=== PATIENT | male | born 1960 | race Caucasian/White ===

== ENCOUNTER 2021-10-29 18:30 | Inpatient (IN) | payer MEDICARE, MEDICAID ==
[~2021-10-29] VITALS: Ht 162.6 cm; Wt 68.0 kg
[2021-10-30] MEDS ORDERED: VANCOMYCIN 1G PREMIX 200 ML IV STA (01:14)
[2021-10-30] MEDS ORDERED: PIPERACILLIN/TAZOBACTAM 3.375GM/50ML PREMIX IV STA (01:14)
[2021-10-30] MEDS ORDERED: PIPERACILLIN/TAZ 3.375G PREMIX 50 ML IV NR (01:30)
[2021-10-30 01:34] LABS: EOSINOPHILS % 3.1 % (0.0-5.0); HEMATOCRIT. 37.1 % (42.0-52.0); LYMPHOCYTES % 19.1 % (20.0-50.0); MEAN CORPUSCULAR HEMOGLOBIN 27.4 pg (28.0-32.0); MEAN CORPUSCULAR VOLUME 85.1 fL (80.0-94.0); MEAN PLATELET VOLUME 7.4 fl (7.4-10.4); MONOCYTES % 7.5 % (2.0-8.0); NEUTROPHILS % 69.3 % (40.0-76.0); PLATELET 176 x1000/uL (130-400); RED BLOOD CELL COUNT 4.37 mill/uL (4.7-6.1); RED CELL DISTRIBUTION WIDTH 18.7 % (11.6-14.6)
[2021-10-30 01:41] LABS: CHLORIDE 95 mEq/L (98-107)
[2021-10-30 01:46] LABS: INR 1.2; PROTHROMBIN TIME 13.1 sec (9.6-11.0)
[2021-10-30] MEDS ORDERED: VANCOMYCIN 1G PREMIX 200 ML IV NR (02:15)
[2021-10-30] MEDS ORDERED: SODIUM CHLORIDE 0.9% 1,000 ML IV ONE (08:30)
[2021-10-30 10:30] VITALS: BP 128/65
[2021-10-30 12:00] VITALS: BP 145/77
[2021-10-30] MEDS ORDERED: CLONIDINE 0.1MG TABLET PO PRN (14:15)
[2021-10-30] MEDS ORDERED: DIPHENHYDRAMINE 50MG/ML VIAL IV PRN (14:15)
[2021-10-30] MEDS ORDERED: ACETAMINOPHEN 325MG TABLET PO PRN (14:15)
[2021-10-30] MEDS ORDERED: MAGNESIUM/ALUMINUM HYDROXIDE/SIMETHICONE 30ML UDC PO PRN (14:15)
[2021-10-30] MEDS ORDERED: ONDANSETRON HCL 4MG/2ML INJ IV PRN (14:15)
[2021-10-30] MEDS: NITROGLYCERIN OINT 1GM/INCH UDPKT TD SCH ×2 (14:22→18:01)
[2021-10-30 14:57] LABS: HEPATITIS B SURFACE ANTIGEN NEGATIVE
[2021-10-30 16:00] VITALS: BP_SYST 125; BP_SYST 143; BP_DIAS 80; BP_DIAS 85
[2021-10-30] MEDS ORDERED: ENOXAPARIN 30MG/0.3ML SYR SUBCUT NR (16:00)
[2021-10-30] MEDS: DEXTROSE 50% WATER 50ML SYRINGE IV PRN (17:44)
[2021-10-30] MEDS: INSULIN LISPRO 100 UNITS/ML SUBCUT SCH ×2 (17:50→21:00)
[2021-10-30] MEDS: BLOOD SUGAR DIAGNOSTIC STRIP TEST SCH ×2 (18:01→21:00)
[2021-10-30] MEDS: ROPINIROLE HCL 1MG TABLET PO SCH (18:01)
[2021-10-30] MEDS: CALCIUM ACETATE 667MG CAPSULE PO SCH (18:16)
[2021-10-30] MEDS: OMEPRAZOLE 20MG CAPSULE EXTENDED RELEASE PO SCH (18:16)
[2021-10-30 20:00] VITALS: BP 126/71
[2021-10-30] MEDS ORDERED: ZOLPIDEM TARTRATE 5MG TABLET PO PRN (21:00)
[2021-10-30] MEDS: CARVEDILOL 3.125 MG TABLET PO SCH (21:59)
[2021-10-30] MEDS: ATORVASTATIN CALCIUM 40MG TABLET PO SCH (22:00)
[2021-10-30] MEDS: GABAPENTIN 300MG CAPSULE PO SCH (22:00)
[2021-10-31] VITALS: BP 134/77
[2021-10-31 04:00] VITALS: BP 115/64
[2021-10-31] MEDS: DEXTROSE 5% WATER 1,000 ML IV SCH ×2 (07:04→17:42)
[2021-10-31] MEDS: SODIUM CHLORIDE 0.9% INJ 3ML FLUSH IVF SCH ×4 (07:05→22:00)
[2021-10-31] MEDS: BLOOD SUGAR DIAGNOSTIC STRIP TEST SCH ×4 (07:10→21:00)
[2021-10-31] MEDS: OMEPRAZOLE 20MG CAPSULE EXTENDED RELEASE PO SCH (07:10)
[2021-10-31] MEDS: NITROGLYCERIN OINT 1GM/INCH UDPKT TD SCH ×4 (07:10→17:41)
[2021-10-31] MEDS: INSULIN LISPRO 100 UNITS/ML SUBCUT SCH ×4 (07:50→21:00)
[2021-10-31 08:00] VITALS: BP 150/85
[2021-10-31] MEDS: CALCIUM ACETATE 667MG CAPSULE PO SCH ×3 (09:08→17:41)
[2021-10-31] MEDS: CARVEDILOL 3.125 MG TABLET PO SCH ×2 (09:09→21:50)
[2021-10-31] MEDS: FOLIC ACID/VITAMIN B COMP W-C TABLET PO SCH (09:09)
[2021-10-31] MEDS: FERROUS SULFATE 325MG TABLET PO SCH (09:09)
[2021-10-31] MEDS: ROPINIROLE HCL 1MG TABLET PO SCH ×2 (09:10→17:41)
[2021-10-31] MEDS: LISINOPRIL 5MG TABLET PO SCH (09:10)
[2021-10-31 09:34] LABS: EOSINOPHILS % 4.4 % (0.0-5.0); HEMATOCRIT. 31.8 % (42.0-52.0); HEMOGLOBIN. 10.1 g/dL (14.0-18.0); LYMPHOCYTES % 18.8 % (20.0-50.0); MEAN CORPUSCULAR HEMOGLOBIN 27.4 pg (28.0-32.0); MEAN CORPUSCULAR VOLUME 86.2 fL (80.0-94.0); MEAN PLATELET VOLUME 7.9 fl (7.4-10.4); MONOCYTES % 13.4 % (2.0-8.0); NEUTROPHILS % 62.4 % (40.0-76.0); PLATELET 155 x1000/uL (130-400); RED BLOOD CELL COUNT 3.69 mill/uL (4.7-6.1); RED CELL DISTRIBUTION WIDTH 18.7 % (11.6-14.6)
[2021-10-31 12:00] VITALS: BP 143/74
[2021-10-31] MEDS ORDERED: MIDAZOLAM HCL 2 MG/2 ML VIAL ONE (13:24)
[2021-10-31] MEDS ORDERED: IODIXANOL 320MG/ML 100 ML BOTTLE IV ONE (13:24)
[2021-10-31] MEDS ORDERED: FENTANYL CITRATE/PF 50MCG/ML 2ML VIAL ONE (13:24)
[2021-10-31] MEDS ORDERED: LIDOCAINE HCL 1% 10 MG/ML 10ML VIAL ONE (13:27)
[2021-10-31] MEDS ORDERED: FUROSEMIDE 20MG/2ML VIAL ONE (14:58)
[2021-10-31] MEDS ORDERED: CEFTRIAXONE 2 G PREMIX 50 ML IV SCH (15:15)
[2021-10-31 16:00] VITALS: BP 107/65
[2021-10-31] MEDS: ACETAMINOPHEN 325MG TABLET PO PRN ×2 (17:41→21:49)
[2021-10-31] MEDS: CEFTRIAXONE 2 G in DEXTROSE 5% WATER 50 ML IV SCH (17:57)
[2021-10-31] MEDS: METRONIDAZOLE 250MG TABLET PO SCH (17:57)
[2021-10-31 20:00] VITALS: BP 124/73
[2021-10-31] MEDS: GABAPENTIN 300MG CAPSULE PO SCH (21:48)
[2021-11-01] VITALS: BP 136/71
[2021-11-01] MEDS: ATORVASTATIN CALCIUM 40MG TABLET PO SCH ×2 (00:54→23:45)
[2021-11-01] MEDS: METRONIDAZOLE 250MG TABLET PO SCH ×4 (00:55→23:45)
[2021-11-01] MEDS: NITROGLYCERIN OINT 1GM/INCH UDPKT TD SCH ×4 (00:56→18:00)
[2021-11-01 04:00] VITALS: BP 125/66
[2021-11-01] MEDS: SODIUM CHLORIDE 0.9% INJ 3ML FLUSH IVF SCH ×3 (06:51→23:47)
[2021-11-01] MEDS: BLOOD SUGAR DIAGNOSTIC STRIP TEST SCH ×4 (07:02→21:00)
[2021-11-01] MEDS: INSULIN LISPRO 100 UNITS/ML SUBCUT SCH ×4 (07:05→21:00)
[2021-11-01 07:32] LABS: BASOPHILS % 0.9 % (0.0-2.0); EOSINOPHILS % 5.6 % (0.0-5.0); HEMATOCRIT. 31.7 % (42.0-52.0); HEMOGLOBIN. 10.3 g/dL (14.0-18.0); LYMPHOCYTES % 21.7 % (20.0-50.0); MEAN CORPUSCULAR HEMOGLOBIN 27.5 pg (28.0-32.0); MEAN CORPUSCULAR VOLUME 84.3 fL (80.0-94.0); MEAN PLATELET VOLUME 7.5 fl (7.4-10.4); MONOCYTES % 11.8 % (2.0-8.0); PLATELET 165 x1000/uL (130-400); RED BLOOD CELL COUNT 3.76 mill/uL (4.7-6.1); RED CELL DISTRIBUTION WIDTH 18.3 % (11.6-14.6)
[2021-11-01] MEDS: DEXTROSE 50% WATER 50ML SYRINGE IV PRN ×2 (07:58→08:04)
[2021-11-01 08:00] VITALS: BP 116/61
[2021-11-01] MEDS ORDERED: BUPIVACAINE HCL/PF 0.5% (5MG/ML) 10ML ONE (08:00)
[2021-11-01] MEDS ORDERED: BACITRACIN 15GM TUBE TOP ONE (08:00)
[2021-11-01] MEDS ORDERED: POLYMYXIN B SULFATE 500000 UNITS/VIAL ONE ×2 (08:00→10:38)
[2021-11-01] MEDS ORDERED: DEXAMETHASONE 4MG/ML 1ML VIAL ONE (08:00)
[2021-11-01] MEDS ORDERED: LIDOCAINE HCL 1% 20ML VIAL (Pyxis) INJ ONE (08:02)
[2021-11-01] MEDS: FOLIC ACID/VITAMIN B COMP W-C TABLET PO SCH (08:50)
[2021-11-01] MEDS: ROPINIROLE HCL 1MG TABLET PO SCH ×2 (08:50→18:00)
[2021-11-01] MEDS: CARVEDILOL 3.125 MG TABLET PO SCH ×2 (08:53→23:45)
[2021-11-01] MEDS: LISINOPRIL 5MG TABLET PO SCH (08:54)
[2021-11-01] MEDS: FERROUS SULFATE 325MG TABLET PO SCH (08:55)
[2021-11-01] MEDS: FAMOTIDINE 20MG TABLET PO SCH (08:55)
[2021-11-01] MEDS: CALCIUM ACETATE 667MG CAPSULE PO SCH ×3 (08:55→18:00)
[2021-11-01] MEDS ORDERED: FENTANYL CITRATE/PF 50MCG/ML 2ML VIAL ONE (10:22)
[2021-11-01] MEDS ORDERED: ONDANSETRON HCL 4MG/2ML INJ ONE (10:22)
[2021-11-01] MEDS ORDERED: LIDOCAINE HCL 1% 10 MG/ML 10ML VIAL ONE (10:22)
[2021-11-01] MEDS ORDERED: MIDAZOLAM HCL 2 MG/2 ML VIAL ONE (10:23)
[2021-11-01] MEDS ORDERED: PROPOFOL 200MG/20ML VIAL IV ONE (10:23)
[2021-11-01] MEDS ORDERED: GENTAMICIN SULF 40MG/ML 2ML VIAL ONE (10:38)
[2021-11-01] MEDS ORDERED: LABETALOL 5MG/ML SYR 20 MG/4 ML SYRINGE IV PRN (11:00)
[2021-11-01] MEDS ORDERED: MEPERIDINE HCL/PF 25MG/ML CPJ IV PRN (11:00)
[2021-11-01] MEDS ORDERED: ONDANSETRON HCL 4MG/2ML INJ IV PRN (11:00)
[2021-11-01] MEDS ORDERED: HYDROMORPHONE HCL/PF 2MG/ML CPJ IV PRN (11:00)
[2021-11-01] MEDS ORDERED: NALOXONE HCL 0.4MG/ML VIAL IV PRN (11:15)
[2021-11-01 16:00] VITALS: BP 115/64
[2021-11-01] MEDS ORDERED: POTASSIUM CHLORIDE 20MEQ TABLET SR PO NR (16:00)
[2021-11-01] MEDS: CEFTRIAXONE 2 G in DEXTROSE 5% WATER 50 ML IV SCH (17:00)
[2021-11-01] MEDS: GABAPENTIN 300MG CAPSULE PO SCH (23:46)
[2021-11-02] VITALS: BP 117/61
[2021-11-02 04:00] VITALS: BP 115/60
[2021-11-02] MEDS: SODIUM CHLORIDE 0.9% INJ 3ML FLUSH IVF SCH ×3 (06:00→21:23)
[2021-11-02] MEDS: NITROGLYCERIN OINT 1GM/INCH UDPKT TD SCH ×3 (06:57→18:00)
[2021-11-02] MEDS: METRONIDAZOLE 250MG TABLET PO SCH ×3 (06:58→21:22)
[2021-11-02] MEDS: BLOOD SUGAR DIAGNOSTIC STRIP TEST SCH ×4 (06:58→21:00)
[2021-11-02] MEDS: INSULIN LISPRO 100 UNITS/ML SUBCUT SCH ×4 (07:50→21:00)
[2021-11-02 08:00] VITALS: BP 85/57
[2021-11-02] MEDS: FAMOTIDINE 20MG TABLET PO SCH (08:24)
[2021-11-02] MEDS: ROPINIROLE HCL 1MG TABLET PO SCH ×2 (08:24→18:21)
[2021-11-02] MEDS: FOLIC ACID/VITAMIN B COMP W-C TABLET PO SCH (08:24)
[2021-11-02] MEDS: CALCIUM ACETATE 667MG CAPSULE PO SCH ×3 (08:24→18:19)
[2021-11-02] MEDS: FERROUS SULFATE 325MG TABLET PO SCH (08:24)
[2021-11-02] MEDS: CARVEDILOL 3.125 MG TABLET PO SCH ×2 (08:38→21:23)
[2021-11-02] MEDS: LISINOPRIL 5MG TABLET PO SCH (08:41)
[2021-11-02 12:00] VITALS: BP 110/49
[2021-11-02] MEDS ORDERED: POTASSIUM CHLORIDE 20MEQ TABLET SR PO NR (14:30)
[2021-11-02 16:00] VITALS: BP 96/47
[2021-11-02] MEDS: CEFTRIAXONE 2 G in DEXTROSE 5% WATER 50 ML IV SCH (18:19)
[2021-11-02 20:00] VITALS: BP 136/70
[2021-11-02] MEDS: GABAPENTIN 300MG CAPSULE PO SCH (21:22)
[2021-11-02] MEDS: ATORVASTATIN CALCIUM 40MG TABLET PO SCH (21:23)
[2021-11-03] VITALS: BP 124/52
[2021-11-03 04:00] VITALS: BP 126/58
[2021-11-03] MEDS: NITROGLYCERIN OINT 1GM/INCH UDPKT TD SCH ×2 (05:02)
[2021-11-03] MEDS: SODIUM CHLORIDE 0.9% INJ 3ML FLUSH IVF SCH ×3 (05:03→22:00)
[2021-11-03] MEDS: METRONIDAZOLE 250MG TABLET PO SCH ×2 (05:03→13:41)
[2021-11-03] MEDS: BLOOD SUGAR DIAGNOSTIC STRIP TEST SCH ×4 (06:27→21:00)
[2021-11-03] MEDS: INSULIN LISPRO 100 UNITS/ML SUBCUT SCH ×4 (07:50→21:00)
[2021-11-03 08:00] VITALS: BP 129/67
[2021-11-03] MEDS ORDERED: SODIUM BICARBONATE 4% (2.4MEQ) 5ML VIAL IV ONE (08:18)
[2021-11-03] MEDS ORDERED: LIDOCAINE HCL/PF 1% 10 MG/ML 5ML VIAL ONE (08:18)
[2021-11-03] MEDS: CALCIUM ACETATE 667MG CAPSULE PO SCH ×3 (08:40→19:52)
[2021-11-03] MEDS: ROPINIROLE HCL 1MG TABLET PO SCH ×2 (10:39→19:52)
[2021-11-03] MEDS: FERROUS SULFATE 325MG TABLET PO SCH (10:40)
[2021-11-03] MEDS: LISINOPRIL 5MG TABLET PO SCH (10:40)
[2021-11-03] MEDS: FAMOTIDINE 20MG TABLET PO SCH (10:40)
[2021-11-03] MEDS: FOLIC ACID/VITAMIN B COMP W-C TABLET PO SCH (10:41)
[2021-11-03] MEDS: CARVEDILOL 3.125 MG TABLET PO SCH ×3 (10:41→23:03)
[2021-11-03 11:44] LABS: BASOPHILS % 1.1 % (0.0-2.0); EOSINOPHILS % 5.4 % (0.0-5.0); HEMATOCRIT. 34.9 % (42.0-52.0); HEMOGLOBIN. 11.2 g/dL (14.0-18.0); LYMPHOCYTES % 19.8 % (20.0-50.0); MEAN CORPUSCULAR HEMOGLOBIN 27.5 pg (28.0-32.0); MEAN PLATELET VOLUME 7.5 fl (7.4-10.4); MONOCYTES % 10.1 % (2.0-8.0); NEUTROPHILS % 63.6 % (40.0-76.0); PLATELET 159 x1000/uL (130-400); RED BLOOD CELL COUNT 4.06 mill/uL (4.7-6.1); RED CELL DISTRIBUTION WIDTH 18.8 % (11.6-14.6)
[2021-11-03 12:00] VITALS: BP 112/52
[2021-11-03 16:00] VITALS: BP 124/49
[2021-11-03] MEDS ORDERED: VANCOMYCIN 1500MG in DEXTROSE 5% WATER 250ML IV NR (18:00)
[2021-11-03] MEDS: CEFTRIAXONE 2 G in DEXTROSE 5% WATER 50 ML IV SCH (19:53)
[2021-11-03 20:00] VITALS: BP 117/56
[2021-11-03] MEDS: GABAPENTIN 300MG CAPSULE PO SCH (23:19)
[2021-11-03] MEDS: ATORVASTATIN CALCIUM 40MG TABLET PO SCH (23:20)
[2021-11-04] VITALS: BP 122/56
[2021-11-04] MEDS: METRONIDAZOLE 250MG TABLET PO SCH ×3 (01:09→21:22)
[2021-11-04 04:00] VITALS: BP 124/57
[2021-11-04 07:44] LABS: BASOPHILS % 0.9 % (0.0-2.0); EOSINOPHILS % 4.8 % (0.0-5.0); HEMATOCRIT. 36.8 % (42.0-52.0); HEMOGLOBIN. 11.6 g/dL (14.0-18.0); LYMPHOCYTES % 22.1 % (20.0-50.0); MEAN CORPUSCULAR HEMOGLOBIN 27.5 pg (28.0-32.0); MEAN CORPUSCULAR VOLUME 87.3 fL (80.0-94.0); MEAN PLATELET VOLUME 7.7 fl (7.4-10.4); MONOCYTES % 9.9 % (2.0-8.0); NEUTROPHILS % 62.3 % (40.0-76.0); PLATELET 147 x1000/uL (130-400); RED BLOOD CELL COUNT 4.22 mill/uL (4.7-6.1); RED CELL DISTRIBUTION WIDTH 18.1 % (11.6-14.6)
[2021-11-04] MEDS: CALCIUM ACETATE 667MG CAPSULE PO SCH ×3 (07:50→18:05)
[2021-11-04] MEDS: INSULIN LISPRO 100 UNITS/ML SUBCUT SCH ×4 (07:50→21:00)
[2021-11-04 08:00] VITALS: BP 103/66
[2021-11-04] MEDS: BLOOD SUGAR DIAGNOSTIC STRIP TEST SCH ×4 (08:09→21:00)
[2021-11-04] MEDS: LISINOPRIL 5MG TABLET PO SCH (09:00)
[2021-11-04] MEDS: FOLIC ACID/VITAMIN B COMP W-C TABLET PO SCH (09:00)
[2021-11-04] MEDS: ROPINIROLE HCL 1MG TABLET PO SCH ×2 (09:00→17:37)
[2021-11-04] MEDS: FERROUS SULFATE 325MG TABLET PO SCH (09:00)
[2021-11-04] MEDS: FAMOTIDINE 20MG TABLET PO SCH (09:00)
[2021-11-04 12:00] VITALS: BP 99/45
[2021-11-04] MEDS: SODIUM CHLORIDE 0.9% INJ 3ML FLUSH IVF SCH ×2 (14:37→21:22)
[2021-11-04 16:00] VITALS: BP 141/71
[2021-11-04] MEDS: HYDROCODONE/ACETAMINOPHEN 5/325MG TABLET PO PRN (16:08)
[2021-11-04] MEDS: CEFTRIAXONE 2 G in DEXTROSE 5% WATER 50 ML IV SCH (17:37)
[2021-11-04] MEDS ORDERED: NALOXONE HCL 0.4MG/ML VIAL IV PRN (18:30)
[2021-11-04 20:00] VITALS: BP 103/51
[2021-11-04] MEDS: CARVEDILOL 3.125 MG TABLET PO SCH (21:00)
[2021-11-04] MEDS: ATORVASTATIN CALCIUM 40MG TABLET PO SCH (21:22)
[2021-11-04] MEDS: GABAPENTIN 300MG CAPSULE PO SCH (21:22)
[2021-11-04] MEDS ORDERED: BACITRACIN ZINC OINT UDPKT TOP NR (23:00)
[2021-11-05] VITALS: BP 109/54
[2021-11-05 04:00] VITALS: BP 110/68
[2021-11-05] MEDS: HYDROCODONE/ACETAMINOPHEN 5/325MG TABLET PO PRN ×2 (05:08→09:23)
[2021-11-05] MEDS: METRONIDAZOLE 250MG TABLET PO SCH ×2 (05:08→14:23)
[2021-11-05] MEDS: SODIUM CHLORIDE 0.9% INJ 3ML FLUSH IVF SCH ×3 (05:08→22:00)
[2021-11-05 06:30] LABS: BASOPHILS % 0.9 % (0.0-2.0); HEMATOCRIT. 37.8 % (42.0-52.0); HEMOGLOBIN. 12.1 g/dL (14.0-18.0); LYMPHOCYTES % 25.8 % (20.0-50.0); MEAN CORPUSCULAR HEMOGLOBIN 27.7 pg (28.0-32.0); MEAN CORPUSCULAR VOLUME 86.3 fL (80.0-94.0); MEAN PLATELET VOLUME 7.5 fl (7.4-10.4); MONOCYTES % 9.7 % (2.0-8.0); NEUTROPHILS % 58.6 % (40.0-76.0); PLATELET 159 x1000/uL (130-400); RED BLOOD CELL COUNT 4.38 mill/uL (4.7-6.1); RED CELL DISTRIBUTION WIDTH 18.6 % (11.6-14.6)
[2021-11-05] MEDS: BLOOD SUGAR DIAGNOSTIC STRIP TEST SCH ×4 (07:08→21:25)
[2021-11-05] MEDS: INSULIN LISPRO 100 UNITS/ML SUBCUT SCH ×4 (07:50→21:00)
[2021-11-05 08:00] VITALS: BP 120/63
[2021-11-05] MEDS: FERROUS SULFATE 325MG TABLET PO SCH (09:20)
[2021-11-05] MEDS: FAMOTIDINE 20MG TABLET PO SCH (09:20)
[2021-11-05] MEDS: CARVEDILOL 3.125 MG TABLET PO SCH ×2 (09:20→21:21)
[2021-11-05] MEDS: ROPINIROLE HCL 1MG TABLET PO SCH ×2 (09:21→18:24)
[2021-11-05] MEDS: FOLIC ACID/VITAMIN B COMP W-C TABLET PO SCH (09:21)
[2021-11-05] MEDS: LISINOPRIL 5MG TABLET PO SCH (09:21)
[2021-11-05] MEDS: CALCIUM ACETATE 667MG CAPSULE PO SCH ×3 (09:30→18:24)
[2021-11-05 12:00] VITALS: BP 100/51
[2021-11-05 16:00] VITALS: BP 120/50
[2021-11-05] MEDS: CEFTRIAXONE 2 G in DEXTROSE 5% WATER 50 ML IV SCH (18:24)
[2021-11-05 20:00] VITALS: BP 114/52
[2021-11-05] MEDS: ATORVASTATIN CALCIUM 40MG TABLET PO SCH (21:23)
[2021-11-05] MEDS: GABAPENTIN 300MG CAPSULE PO SCH (21:23)
[2021-11-06] VITALS: BP 120/48
[2021-11-06 04:00] VITALS: BP 127/70
[2021-11-06] MEDS: SODIUM CHLORIDE 0.9% INJ 3ML FLUSH IVF SCH ×3 (06:46→22:17)
[2021-11-06 06:49] LABS: EOSINOPHILS % 4.7 % (0.0-5.0); HEMATOCRIT. 37.2 % (42.0-52.0); HEMOGLOBIN. 11.7 g/dL (14.0-18.0); LYMPHOCYTES % 23.2 % (20.0-50.0); MEAN CORPUSCULAR HEMOGLOBIN 27.5 pg (28.0-32.0); MEAN PLATELET VOLUME 7.7 fl (7.4-10.4); MONOCYTES % 8.8 % (2.0-8.0); NEUTROPHILS % 62.3 % (40.0-76.0); PLATELET 162 x1000/uL (130-400); RED BLOOD CELL COUNT 4.27 mill/uL (4.7-6.1); RED CELL DISTRIBUTION WIDTH 18.3 % (11.6-14.6)
[2021-11-06] MEDS: BLOOD SUGAR DIAGNOSTIC STRIP TEST SCH ×4 (07:20→21:15)
[2021-11-06] MEDS: CALCIUM ACETATE 667MG CAPSULE PO SCH ×3 (07:50→17:37)
[2021-11-06] MEDS: INSULIN LISPRO 100 UNITS/ML SUBCUT SCH ×4 (07:50→21:15)
[2021-11-06 08:00] VITALS: BP 128/70
[2021-11-06] MEDS: LISINOPRIL 5MG TABLET PO SCH (10:16)
[2021-11-06] MEDS: FERROUS SULFATE 325MG TABLET PO SCH (10:17)
[2021-11-06] MEDS: FAMOTIDINE 20MG TABLET PO SCH (10:17)
[2021-11-06] MEDS: CARVEDILOL 3.125 MG TABLET PO SCH ×2 (10:17→21:00)
[2021-11-06] MEDS: ROPINIROLE HCL 1MG TABLET PO SCH ×2 (10:17→17:37)
[2021-11-06] MEDS: FOLIC ACID/VITAMIN B COMP W-C TABLET PO SCH (10:18)
[2021-11-06] MEDS: HYDROCODONE/ACETAMINOPHEN 5/325MG TABLET PO PRN ×2 (11:45→16:18)
[2021-11-06 12:00] VITALS: BP 121/64
[2021-11-06] MEDS ORDERED: VANCOMYCIN 750MG PREMIX 150 ML IV SCH (13:00)
[2021-11-06 16:00] VITALS: BP 104/49
[2021-11-06] MEDS ORDERED: BACITRACIN ZINC OINT UDPKT TOP NR (17:15)
[2021-11-06 20:00] VITALS: BP 98/44
[2021-11-06] MEDS: CEFAZOLIN 2,000 MG in DEXT 5% WATER 100 ML IV SCH (22:16)
[2021-11-06] MEDS: ATORVASTATIN CALCIUM 40MG TABLET PO SCH (22:17)
[2021-11-06] MEDS: GABAPENTIN 300MG CAPSULE PO SCH (22:17)
[2021-11-06] MEDS: METRONIDAZOLE 250MG TABLET PO SCH (22:17)
[2021-11-07] VITALS: BP 110/58
[2021-11-07] MEDS: HYDROCODONE/ACETAMINOPHEN 5/325MG TABLET PO PRN (01:40)
[2021-11-07 04:00] VITALS: BP 102/66
[2021-11-07] MEDS: INSULIN LISPRO 100 UNITS/ML SUBCUT SCH ×4 (06:04→21:00)
[2021-11-07] MEDS: BLOOD SUGAR DIAGNOSTIC STRIP TEST SCH ×4 (06:04→21:06)
[2021-11-07] MEDS: SODIUM CHLORIDE 0.9% INJ 3ML FLUSH IVF SCH ×3 (06:13→22:12)
[2021-11-07] MEDS: METRONIDAZOLE 250MG TABLET PO SCH ×3 (06:13→22:12)
[2021-11-07] MEDS: CALCIUM ACETATE 667MG CAPSULE PO SCH ×3 (06:13→16:40)
[2021-11-07 07:55] LABS: BASOPHILS % 0.8 % (0.0-2.0); EOSINOPHILS % 4.3 % (0.0-5.0); HEMOGLOBIN. 11.1 g/dL (14.0-18.0); LYMPHOCYTES % 25.4 % (20.0-50.0); MEAN CORPUSCULAR HEMOGLOBIN 27.6 pg (28.0-32.0); MEAN CORPUSCULAR VOLUME 87.2 fL (80.0-94.0); MEAN PLATELET VOLUME 7.7 fl (7.4-10.4); MONOCYTES % 9.1 % (2.0-8.0); NEUTROPHILS % 60.4 % (40.0-76.0); PLATELET 145 x1000/uL (130-400); RED BLOOD CELL COUNT 4.01 mill/uL (4.7-6.1); RED CELL DISTRIBUTION WIDTH 18.6 % (11.6-14.6)
[2021-11-07 08:00] VITALS: BP 102/58
[2021-11-07] MEDS: CARVEDILOL 3.125 MG TABLET PO SCH ×2 (08:39→21:00)
[2021-11-07] MEDS: LISINOPRIL 5MG TABLET PO SCH (08:39)
[2021-11-07] MEDS: FOLIC ACID/VITAMIN B COMP W-C TABLET PO SCH (09:02)
[2021-11-07] MEDS: ROPINIROLE HCL 1MG TABLET PO SCH ×2 (09:03→16:40)
[2021-11-07] MEDS: FERROUS SULFATE 325MG TABLET PO SCH (09:03)
[2021-11-07] MEDS: FAMOTIDINE 20MG TABLET PO SCH (09:03)
[2021-11-07 11:58] VITALS: BP 103/58
[2021-11-07] MEDS ORDERED: BACITRACIN ZINC OINT UDPKT TOP NR (14:00)
[2021-11-07 16:16] VITALS: BP 106/60
[2021-11-07] MEDS ORDERED: *PATIENT'S OWN MEDICATION STORAGE XX SCH (19:30)
[2021-11-07 20:00] VITALS: BP 106/36
[2021-11-07] MEDS: ATORVASTATIN CALCIUM 40MG TABLET PO SCH (21:06)
[2021-11-07] MEDS: GABAPENTIN 300MG CAPSULE PO SCH (21:06)
[2021-11-07] MEDS: DEXTROSE 50% WATER 50ML SYRINGE IV PRN (21:06)
[2021-11-07] MEDS: CEFAZOLIN 2,000 MG in DEXT 5% WATER 100 ML IV SCH (21:06)
[2021-11-08 04:00] VITALS: BP 112/51
[2021-11-08] MEDS: METRONIDAZOLE 250MG TABLET PO SCH ×3 (06:09→21:32)
[2021-11-08] MEDS: SODIUM CHLORIDE 0.9% INJ 3ML FLUSH IVF SCH ×3 (06:10→21:33)
[2021-11-08] MEDS: BLOOD SUGAR DIAGNOSTIC STRIP TEST SCH ×4 (06:22→21:32)
[2021-11-08] MEDS: DEXTROSE 50% WATER 50ML SYRINGE IV PRN (06:27)
[2021-11-08 07:11] LABS: BASOPHILS % 0.9 % (0.0-2.0); EOSINOPHILS % 4.2 % (0.0-5.0); HEMATOCRIT. 35.5 % (42.0-52.0); HEMOGLOBIN. 11.2 g/dL (14.0-18.0); LYMPHOCYTES % 25.7 % (20.0-50.0); MEAN CORPUSCULAR HEMOGLOBIN 27.5 pg (28.0-32.0); MEAN CORPUSCULAR VOLUME 87.3 fL (80.0-94.0); MEAN PLATELET VOLUME 7.7 fl (7.4-10.4); MONOCYTES % 10.3 % (2.0-8.0); NEUTROPHILS % 58.9 % (40.0-76.0); PLATELET 135 x1000/uL (130-400); RED BLOOD CELL COUNT 4.07 mill/uL (4.7-6.1); RED CELL DISTRIBUTION WIDTH 18.9 % (11.6-14.6)
[2021-11-08] MEDS: INSULIN LISPRO 100 UNITS/ML SUBCUT SCH ×4 (07:31→21:00)
[2021-11-08 08:00] VITALS: BP 102/44
[2021-11-08] MEDS: FAMOTIDINE 20MG TABLET PO SCH (08:43)
[2021-11-08] MEDS: FERROUS SULFATE 325MG TABLET PO SCH (08:43)
[2021-11-08] MEDS: CALCIUM ACETATE 667MG CAPSULE PO SCH ×3 (08:43→17:23)
[2021-11-08] MEDS: ROPINIROLE HCL 1MG TABLET PO SCH ×2 (08:43→17:23)
[2021-11-08] MEDS: FOLIC ACID/VITAMIN B COMP W-C TABLET PO SCH (08:43)
[2021-11-08] MEDS: LISINOPRIL 5MG TABLET PO SCH (08:44)
[2021-11-08] MEDS: CARVEDILOL 3.125 MG TABLET PO SCH ×2 (08:44→21:00)
[2021-11-08 12:00] VITALS: BP 105/58
[2021-11-08] MEDS: LACTULOSE 20G/30ML UDC PO SCH ×2 (13:54→21:33)
[2021-11-08 16:00] VITALS: BP 111/54
[2021-11-08 20:29] VITALS: BP 97/56
[2021-11-08] MEDS: GABAPENTIN 300MG CAPSULE PO SCH (21:32)
[2021-11-08] MEDS: ATORVASTATIN CALCIUM 40MG TABLET PO SCH (21:32)
[2021-11-08] MEDS: CEFAZOLIN 2,000 MG in DEXT 5% WATER 100 ML IV SCH (21:56)
[2021-11-09] VITALS (7 sets, daily range): BP systolic 109–125; BP diastolic 44–67
[2021-11-09] MEDS: SODIUM CHLORIDE 0.9% INJ 3ML FLUSH IVF SCH ×3 (06:00→21:03)
[2021-11-09 06:09] LABS: HEMATOCRIT. 34.7 % (42.0-52.0); MEAN CORPUSCULAR HEMOGLOBIN 27.3 pg (28.0-32.0); MEAN PLATELET VOLUME 7.7 fl (7.4-10.4); PLATELET 129 x1000/uL (130-400); RED BLOOD CELL COUNT 4.03 mill/uL (4.7-6.1); RED CELL DISTRIBUTION WIDTH 19.2 % (11.6-14.6)
[2021-11-09] MEDS: LACTULOSE 20G/30ML UDC PO SCH ×3 (06:46→21:18)
[2021-11-09] MEDS: BLOOD SUGAR DIAGNOSTIC STRIP TEST SCH ×4 (06:47→21:17)
[2021-11-09] MEDS: METRONIDAZOLE 250MG TABLET PO SCH ×3 (06:47→21:18)
[2021-11-09] MEDS: INSULIN LISPRO 100 UNITS/ML SUBCUT SCH ×4 (07:50→21:00)
[2021-11-09 08:50] LABS: NUCLEATED RED BLOOD CELLS 1 /100 WBC; PLATELET ESTIMATE NORMAL
[2021-11-09] MEDS: FAMOTIDINE 20MG TABLET PO SCH (09:38)
[2021-11-09] MEDS: CARVEDILOL 3.125 MG TABLET PO SCH ×2 (09:38→21:00)
[2021-11-09] MEDS: ROPINIROLE HCL 1MG TABLET PO SCH ×2 (09:39→17:46)
[2021-11-09] MEDS: FERROUS SULFATE 325MG TABLET PO SCH (09:39)
[2021-11-09] MEDS: CALCIUM ACETATE 667MG CAPSULE PO SCH ×3 (09:39→17:46)
[2021-11-09] MEDS: FOLIC ACID/VITAMIN B COMP W-C TABLET PO SCH (09:39)
[2021-11-09] MEDS ORDERED: SODIUM POLYSTYRENE SULFONATE 15 G/60 ML BOT PO NR (11:45)
[2021-11-09] MEDS: HYDROCODONE/ACETAMINOPHEN 5/325MG TABLET PO PRN (11:53)
[2021-11-09] MEDS: GABAPENTIN 300MG CAPSULE PO SCH (21:01)
[2021-11-09] MEDS: CEFAZOLIN 2,000 MG in DEXT 5% WATER 100 ML IV SCH (21:01)
[2021-11-09] MEDS: ATORVASTATIN CALCIUM 40MG TABLET PO SCH (21:18)
[2021-11-10] VITALS: BP 113/65
[2021-11-10 01:34] VITALS: BP 109/51
[2021-11-10] MEDS ORDERED: TRAM50TA3 MT (01:48)
[2021-11-10] MEDS ORDERED: CARV3.1242 MT (01:48)
[2021-11-10] MEDS ORDERED: ROPI0.5T6 PO (01:49)
[2021-11-10] MEDS ORDERED: SERT25TA74 MT (01:49)
[2021-11-10] MEDS ORDERED: HYDR200T35 PO (01:50)
[2021-11-10] MEDS ORDERED: FLUT15.844 BOTHNSTRLS (01:51)
== END 2021-11-10 02:20 | DRG 617 ==
LOC: ER 18:30 → MICUSO 10-30 03:11 → 6EST 10-30 09:51 → 6WST 11-06 13:26
PROVIDERS: ADMIT Internal Medicine; ATTEND Internal Medicine
PROC: 5A1D70Z Performance of Urinary Filtration, Intermittent, Less than 6 Hours Per Day (ICD-10-PCS; 2021-10-30)
PROC: B41FYZZ Fluoroscopy of Right Lower Extremity Arteries using Other Contrast (ICD-10-PCS; 2021-10-31)
PROC: 0Y6T0Z1 Detachment at Right 3rd Toe, High, Open Approach (ICD-10-PCS; principal; 2021-11-01)
PROC: 0JBQ0ZZ Excision of Right Foot Subcutaneous Tissue and Fascia, Open Approach (ICD-10-PCS; 2021-11-01)
PROC: 5A1D70Z Performance of Urinary Filtration, Intermittent, Less than 6 Hours Per Day (ICD-10-PCS; 2021-11-01)
PROC: 0W9G3ZZ Drainage of Peritoneal Cavity, Percutaneous Approach (ICD-10-PCS; 2021-11-03)
PROC: 5A1D70Z Performance of Urinary Filtration, Intermittent, Less than 6 Hours Per Day (ICD-10-PCS; 2021-11-04)
PROC: 5A1D70Z Performance of Urinary Filtration, Intermittent, Less than 6 Hours Per Day (ICD-10-PCS; 2021-11-06)
PROC: 5A1D70Z Performance of Urinary Filtration, Intermittent, Less than 6 Hours Per Day (ICD-10-PCS; 2021-11-07)
DX: E11.69 Type 2 diabetes mellitus with other specified complication (principal); E11.52 Type 2 diabetes mellitus with diabetic peripheral angiopathy with gangrene; I13.2 Hypertensive heart and chronic kidney disease with heart failure and with stage 5 chronic kidney disease, or end stage renal disease; R18.8 Other ascites; G93.40 Encephalopathy, unspecified; M86.8X7 Other osteomyelitis, ankle and foot; L02.611 Cutaneous abscess of right foot; N18.6 End stage renal disease; D63.8 Anemia in other chronic diseases classified elsewhere; E11.40 Type 2 diabetes mellitus with diabetic neuropathy, unspecified; E11.22 Type 2 diabetes mellitus with diabetic chronic kidney disease; E11.621 Type 2 diabetes mellitus with foot ulcer; I25.10 Atherosclerotic heart disease of native coronary artery without angina pectoris; I50.9 Heart failure, unspecified; K74.60 Unspecified cirrhosis of liver; F32.A Depression, unspecified; L97.519 Non-pressure chronic ulcer of other part of right foot with unspecified severity; Z20.822 Contact with and (suspected) exposure to COVID-19; Z79.4 Long term (current) use of insulin; I25.2 Old myocardial infarction; Z99.2 Dependence on renal dialysis; Z95.1 Presence of aortocoronary bypass graft; Z79.899 Other long term (current) drug therapy
CPT/HCPCS: 36246; 36415; 49083; 70551; 73630; 73721; 75710; 76700; 76705; 80048; 80053; 80202; 82140; 82962; 83036; 84132; 85025; 85651; 86140; 86705; 86709; 86803; 86850; 86900; 87070; 87075; 87077; 87186; 87340; 87426; 88305; 88311; 93005; 93306; 97162; 99285; C1760; C1769; C1893; J0690; J0696; J1100; J1580; J1644; J1650; J1815; J1940; J2250; J2405; J2543; J2704; J3010; J3370; J3490; J7060; J7070; Q9967

== ENCOUNTER 2022-01-23 08:38 | Emergency (ER) | payer MEDICARE, MEDICAID ==
[~2022-01-23] VITALS: Ht 165.1 cm; Wt 72.0 kg
[~2022-01-23 08:38] MED LIST: CARV3.1242 MT; FLUT15.844 BOTHNSTRLS; HYDR200T35 PO; ROPI0.5T6 PO; SERT25TA74 MT; TRAM50TA3 MT
[2022-01-23] MEDS ORDERED: ONDANSETRON HCL 4MG/2ML INJ IV STA (09:08)
[2022-01-23] MEDS ORDERED: PANTOPRAZOLE SODIUM 40 MG/VIAL IV STA (09:08)
[2022-01-23 10:21] LABS: BASOPHILS % 1.1 % (0.0-2.0); EOSINOPHILS % 3.8 % (0.0-5.0); HEMATOCRIT. 40.1 % (42.0-52.0); HEMOGLOBIN. 13.5 g/dL (14.0-18.0); LYMPHOCYTES % 24.4 % (20.0-50.0); MEAN CORPUSCULAR VOLUME 89.1 fL (80.0-94.0); MEAN PLATELET VOLUME 7.5 fl (7.4-10.4); MONOCYTES % 11.5 % (2.0-8.0); NEUTROPHILS % 59.2 % (40.0-76.0); PLATELET 147 x1000/uL (130-400); RED CELL DISTRIBUTION WIDTH 17.5 % (11.6-14.6)
[2022-01-23 10:31] LABS: INR 1.1; PROTHROMBIN TIME 12.2 sec (9.6-11.0)
[2022-01-23 10:32] LABS: CHLORIDE 94 mEq/L (98-107)
[2022-01-23] MEDS ORDERED: PANTOPRAZOLE SODIUM 40 MG/VIAL IV NR (11:30)
[2022-01-23] MEDS ORDERED: ONDANSETRON HCL 4MG/2ML INJ IV NR (11:30)
[2022-01-23] MEDS ORDERED: LIDOCAINE HCL 1% 10 MG/ML 10ML VIAL ONE (13:23)
[2022-01-23] MEDS ORDERED: SODIUM BICARBONATE 4% (2.4MEQ) 5ML VIAL IV ONE (13:23)
[2022-01-23 17:15] VITALS: BP 135/82
== END 2022-01-23 17:16 | disposition home or self-care (01) ==
LOC: ER 08:38
DX: R18.8 Other ascites (principal); I12.0 Hypertensive chronic kidney disease with stage 5 chronic kidney disease or end stage renal disease; E11.22 Type 2 diabetes mellitus with diabetic chronic kidney disease; N18.6 End stage renal disease; D64.9 Anemia, unspecified; K21.9 Gastro-esophageal reflux disease without esophagitis; Z95.1 Presence of aortocoronary bypass graft; Z99.2 Dependence on renal dialysis; Z89.421 Acquired absence of other right toe(s); Z20.822 Contact with and (suspected) exposure to COVID-19
CPT/HCPCS: 36415; 49083; 80053; 83690; 85025; 85610; 87426; 93005; 96374; 96375; 99285; C9113; C9803; J2405; J3490

== ENCOUNTER 2022-01-31 13:23 | Inpatient (IN) | payer MEDICARE, MEDICAID ==
[~2022-01-31] VITALS: Ht 175.3 cm; Wt 49.4 kg
[2022-01-31 15:21] LABS: BASOPHILS % 1.4 % (0.0-2.0); EOSINOPHILS % 3.5 % (0.0-5.0); HEMATOCRIT. 37.9 % (42.0-52.0); HEMOGLOBIN. 13.3 g/dL (14.0-18.0); LYMPHOCYTES % 26.4 % (20.0-50.0); MEAN CORPUSCULAR HEMOGLOBIN 31.1 pg (28.0-32.0); MEAN CORPUSCULAR VOLUME 88.4 fL (80.0-94.0); MONOCYTES % 12.3 % (2.0-8.0); NEUTROPHILS % 56.4 % (40.0-76.0); PLATELET 106 x1000/uL (130-400); RED BLOOD CELL COUNT 4.28 mill/uL (4.7-6.1); RED CELL DISTRIBUTION WIDTH 16.6 % (11.6-14.6)
[2022-01-31 15:45] LABS: CHLORIDE 93 mEq/L (98-107)
[2022-01-31 16:06] LABS: ETHANOL BLOOD < 10 mg/dL
[2022-01-31] MEDS ORDERED: MAGNESIUM/ALUMINUM HYDROXIDE/SIMETHICONE 30ML UDC PO PRN (22:15)
[2022-01-31] MEDS ORDERED: ACETAMINOPHEN 325MG TABLET PO PRN ×2 (22:15)
[2022-01-31] MEDS ORDERED: CLONIDINE 0.1MG TABLET PO PRN (22:15)
[2022-01-31] MEDS: ROPINIROLE HCL 1MG TABLET PO SCH (22:15)
[2022-01-31] MEDS ORDERED: DIPHENHYDRAMINE 50MG/ML VIAL IV PRN (22:15)
[2022-01-31] MEDS: ZOLPIDEM TARTRATE 5MG TABLET PO PRN (23:20)
[2022-02-01] MEDS: LACTULOSE 20G/30ML UDC PO SCH ×3 (06:42→21:45)
[2022-02-01] MEDS: SODIUM CHLORIDE 0.9% INJ 3ML FLUSH IVF SCH ×3 (06:44→21:45)
[2022-02-01 09:00] VITALS: BP 100/61
[2022-02-01] MEDS: ROPINIROLE HCL 1MG TABLET PO SCH ×2 (10:15→21:48)
[2022-02-01] MEDS: FOLIC ACID/VITAMIN B COMP W-C TABLET PO SCH (11:30)
[2022-02-01] MEDS: PAROXETINE HCL 10MG TABLET PO SCH (11:30)
[2022-02-01] MEDS: CARVEDILOL 3.125 MG TABLET PO SCH ×2 (11:31→21:00)
[2022-02-01] MEDS: FERROUS SULFATE 325MG TABLET PO SCH (11:32)
[2022-02-01] MEDS: CALCIUM ACETATE 667MG CAPSULE PO SCH ×2 (11:34→17:12)
[2022-02-01 12:00] VITALS: BP 116/59
[2022-02-01] MEDS: BLOOD SUGAR DIAGNOSTIC STRIP TEST SCH ×3 (12:10→21:00)
[2022-02-01] MEDS: INSULIN LISPRO 100 UNITS/ML SUBCUT SCH ×3 (12:40→21:00)
[2022-02-01 16:00] VITALS: BP 111/63
[2022-02-01] MEDS ORDERED: RANO10003 MT (16:49)
[2022-02-01] MEDS ORDERED: ASPI-986 PO (16:49)
[2022-02-01] MEDS ORDERED: MAG355OR21 MT (16:49)
[2022-02-01] MEDS ORDERED: SUCR500T PO (16:49)
[2022-02-01] MEDS ORDERED: GABA-532 PO (16:49)
[2022-02-01] MEDS ORDERED: ATOR40TA70 MT (16:49)
[2022-02-01] MEDS ORDERED: ISOS30TA91 MT (16:49)
[2022-02-01] MEDS ORDERED: LACT10SO7 MT (16:49)
[2022-02-01] MEDS ORDERED: NEPVIT PO (16:49)
[2022-02-01] MEDS ORDERED: ROPI1TAB14 MT (16:49)
[2022-02-01] MEDS ORDERED: MIDO10TA PO (16:49)
[2022-02-01] MEDS ORDERED: ONDA4TAB50 PO (16:49)
[2022-02-01] MEDS ORDERED: HYDR-4009 PO (16:49)
[2022-02-01] MEDS ORDERED: TOPUD PO (16:49)
[2022-02-01 16:57] LABS: HEPATITIS B SURFACE ANTIGEN NEGATIVE
[2022-02-01 20:00] VITALS: BP 109/46
[2022-02-01] MEDS: ATORVASTATIN CALCIUM 40MG TABLET PO SCH (21:45)
[2022-02-01] MEDS: GABAPENTIN 300MG CAPSULE PO SCH (21:45)
[2022-02-02] VITALS: BP 101/51
[2022-02-02 04:00] VITALS: BP 102/61
[2022-02-02] MEDS: SODIUM CHLORIDE 0.9% INJ 3ML FLUSH IVF SCH ×2 (05:35→14:00)
[2022-02-02] MEDS: DEXTROSE 50% WATER 50ML SYRINGE IV PRN ×5 (05:35→23:03)
[2022-02-02] MEDS: LACTULOSE 20G/30ML UDC PO SCH ×3 (05:38→19:28)
[2022-02-02] MEDS: INSULIN LISPRO 100 UNITS/ML SUBCUT SCH ×4 (05:39→21:00)
[2022-02-02] MEDS: BLOOD SUGAR DIAGNOSTIC STRIP TEST SCH ×4 (05:39→21:00)
[2022-02-02 06:00] LABS: BASOPHILS % 1.1 % (0.0-2.0); EOSINOPHILS % 3.3 % (0.0-5.0); HEMATOCRIT. 37.6 % (42.0-52.0); HEMOGLOBIN. 12.6 g/dL (14.0-18.0); LYMPHOCYTES % 22.8 % (20.0-50.0); MEAN CORPUSCULAR HEMOGLOBIN 29.8 pg (28.0-32.0); MEAN CORPUSCULAR VOLUME 88.7 fL (80.0-94.0); MEAN PLATELET VOLUME 7.9 fl (7.4-10.4); MONOCYTES % 9.9 % (2.0-8.0); NEUTROPHILS % 62.9 % (40.0-76.0); PLATELET 120 x1000/uL (130-400); RED BLOOD CELL COUNT 4.24 mill/uL (4.7-6.1); RED CELL DISTRIBUTION WIDTH 16.9 % (11.6-14.6)
[2022-02-02] MEDS: SEVELAMER CARBONATE 800 MG TABLET PO SCH ×3 (07:40→17:40)
[2022-02-02] MEDS: FOLIC ACID/VITAMIN B COMP W-C TABLET PO SCH ×2 (09:00→11:30)
[2022-02-02] MEDS: PAROXETINE HCL 10MG TABLET PO SCH ×2 (09:00→11:30)
[2022-02-02] MEDS: CARVEDILOL 3.125 MG TABLET PO SCH ×2 (09:00→21:00)
[2022-02-02] MEDS: FERROUS SULFATE 325MG TABLET PO SCH ×2 (09:00→11:30)
[2022-02-02] MEDS: ROPINIROLE HCL 1MG TABLET PO SCH ×2 (10:15→11:30)
[2022-02-02 11:07] LABS: PHOSPHORUS 5.2 mg/dL (2.5-4.9)
[2022-02-02 17:27] LABS: HEPATITIS B SURFACE ANTIGEN NEGATIVE
[2022-02-02] MEDS: MIDODRINE HCL 5MG TABLET PO SCH (19:28)
[2022-02-02 20:30] VITALS: BP 87/44
[2022-02-02 23:18] VITALS: BP 84/46
[2022-02-03] VITALS (7 sets, daily range): BP systolic 105–130; BP diastolic 49–66
[2022-02-03] MEDS: SODIUM CHLORIDE 0.9% INJ 3ML FLUSH IVF SCH ×4 (00:08→22:02)
[2022-02-03] MEDS: METOCLOPRAMIDE HCL 10MG/2ML VIAL IV SCH ×4 (00:08→18:09)
[2022-02-03] MEDS: ROPINIROLE HCL 1MG TABLET PO SCH ×3 (00:11→22:00)
[2022-02-03] MEDS: ATORVASTATIN CALCIUM 40MG TABLET PO SCH ×2 (00:12→22:00)
[2022-02-03] MEDS: GABAPENTIN 300MG CAPSULE PO SCH ×2 (00:12→22:01)
[2022-02-03] MEDS: MIDODRINE HCL 5MG TABLET PO SCH ×3 (05:27→22:00)
[2022-02-03] MEDS: BLOOD SUGAR DIAGNOSTIC STRIP TEST SCH ×4 (05:27→21:00)
[2022-02-03] MEDS: LACTULOSE 20G/30ML UDC PO SCH ×3 (05:33→22:00)
[2022-02-03] MEDS: DEXTROSE 50% WATER 50ML SYRINGE IV PRN (05:40)
[2022-02-03] MEDS: INSULIN LISPRO 100 UNITS/ML SUBCUT SCH ×4 (05:48→21:00)
[2022-02-03 07:13] LABS: BASOPHILS % 0.7 % (0.0-2.0); EOSINOPHILS % 1.9 % (0.0-5.0); HEMATOCRIT. 33.4 % (42.0-52.0); HEMOGLOBIN. 11.1 g/dL (14.0-18.0); LYMPHOCYTES % 16.2 % (20.0-50.0); MEAN CORPUSCULAR HEMOGLOBIN 30.3 pg (28.0-32.0); MEAN CORPUSCULAR VOLUME 91.1 fL (80.0-94.0); MEAN PLATELET VOLUME 7.5 fl (7.4-10.4); MONOCYTES % 7.6 % (2.0-8.0); NEUTROPHILS % 73.6 % (40.0-76.0); PLATELET 106 x1000/uL (130-400); RED BLOOD CELL COUNT 3.67 mill/uL (4.7-6.1)
[2022-02-03] MEDS: CARVEDILOL 3.125 MG TABLET PO SCH ×2 (09:00→22:01)
[2022-02-03] MEDS: FERROUS SULFATE 325MG TABLET PO SCH (09:30)
[2022-02-03] MEDS: SEVELAMER CARBONATE 800 MG TABLET PO SCH ×3 (09:30→18:09)
[2022-02-03] MEDS: FOLIC ACID/VITAMIN B COMP W-C TABLET PO SCH (09:31)
[2022-02-03] MEDS: PAROXETINE HCL 10MG TABLET PO SCH (09:31)
[2022-02-03 17:27] LABS: INR 1.2; PARTIAL THROMBOPLASTIN TIME 44.1 sec (23.4-31.0); PROTHROMBIN TIME 12.9 sec (9.6-11.0)
[2022-02-04] VITALS: BP 140/83
[2022-02-04] MEDS: METOCLOPRAMIDE HCL 10MG/2ML VIAL IV SCH ×4 (00:57→18:00)
[2022-02-04 04:00] VITALS: BP 121/71
[2022-02-04] MEDS: LACTULOSE 20G/30ML UDC PO SCH ×3 (05:31→22:00)
[2022-02-04] MEDS: DEXTROSE 50% WATER 50ML SYRINGE IV PRN (05:31)
[2022-02-04] MEDS: MIDODRINE HCL 5MG TABLET PO SCH ×3 (05:32→22:00)
[2022-02-04] MEDS: SODIUM CHLORIDE 0.9% INJ 3ML FLUSH IVF SCH ×3 (05:32→22:00)
[2022-02-04] MEDS: BLOOD SUGAR DIAGNOSTIC STRIP TEST SCH ×4 (06:25→21:46)
[2022-02-04] MEDS: INSULIN LISPRO 100 UNITS/ML SUBCUT SCH ×4 (06:25→22:54)
[2022-02-04 06:31] LABS: BASOPHILS % 0.6 % (0.0-2.0); EOSINOPHILS % 2.8 % (0.0-5.0); HEMATOCRIT. 33.9 % (42.0-52.0); HEMOGLOBIN. 11.7 g/dL (14.0-18.0); LYMPHOCYTES % 12.9 % (20.0-50.0); MEAN CORPUSCULAR HEMOGLOBIN 30.4 pg (28.0-32.0); MEAN CORPUSCULAR VOLUME 88.5 fL (80.0-94.0); MEAN PLATELET VOLUME 7.5 fl (7.4-10.4); MONOCYTES % 7.7 % (2.0-8.0); PLATELET 130 x1000/uL (130-400); RED BLOOD CELL COUNT 3.83 mill/uL (4.7-6.1); RED CELL DISTRIBUTION WIDTH 16.9 % (11.6-14.6)
[2022-02-04 08:00] VITALS: BP 161/83
[2022-02-04] MEDS: ROPINIROLE HCL 1MG TABLET PO SCH ×2 (09:35→21:45)
[2022-02-04] MEDS: FOLIC ACID/VITAMIN B COMP W-C TABLET PO SCH (09:36)
[2022-02-04] MEDS: PAROXETINE HCL 10MG TABLET PO SCH (09:36)
[2022-02-04] MEDS: CARVEDILOL 3.125 MG TABLET PO SCH ×2 (09:36→21:45)
[2022-02-04] MEDS: FERROUS SULFATE 325MG TABLET PO SCH (09:36)
[2022-02-04] MEDS: SEVELAMER CARBONATE 800 MG TABLET PO SCH ×3 (09:36→18:54)
[2022-02-04] MEDS ORDERED: LIDOCAINE HCL 1% 30ML VIAL (10MG/ML) ONE (11:21)
[2022-02-04] MEDS ORDERED: SODIUM BICARBONATE 4% (2.4MEQ) 5ML VIAL IV ONE (11:21)
[2022-02-04 16:00] VITALS: BP 113/81
[2022-02-04 20:00] VITALS: BP 137/85
[2022-02-04] MEDS: GABAPENTIN 300MG CAPSULE PO SCH (21:45)
[2022-02-04] MEDS: ATORVASTATIN CALCIUM 40MG TABLET PO SCH (21:46)
[2022-02-04] MEDS: ZOLPIDEM TARTRATE 5MG TABLET PO PRN (21:51)
[2022-02-05] VITALS: BP 111/62
[2022-02-05] MEDS: METOCLOPRAMIDE HCL 10MG/2ML VIAL IV SCH ×4 (01:41→16:46)
[2022-02-05 04:00] VITALS: BP 101/53
[2022-02-05] MEDS: LACTULOSE 20G/30ML UDC PO SCH ×3 (06:00→21:21)
[2022-02-05] MEDS: MIDODRINE HCL 5MG TABLET PO SCH ×3 (06:42→21:16)
[2022-02-05] MEDS: SODIUM CHLORIDE 0.9% INJ 3ML FLUSH IVF SCH ×3 (06:42→21:21)
[2022-02-05] MEDS: BLOOD SUGAR DIAGNOSTIC STRIP TEST SCH ×4 (07:10→21:21)
[2022-02-05] MEDS: INSULIN LISPRO 100 UNITS/ML SUBCUT SCH ×4 (07:40→21:00)
[2022-02-05 08:00] VITALS: BP 113/54
[2022-02-05] MEDS: FOLIC ACID/VITAMIN B COMP W-C TABLET PO SCH (09:00)
[2022-02-05] MEDS ORDERED: DIPHENHYDRAMINE 50MG/ML VIAL IV NR (09:00)
[2022-02-05] MEDS: FERROUS SULFATE 325MG TABLET PO SCH (09:09)
[2022-02-05] MEDS: SEVELAMER CARBONATE 800 MG TABLET PO SCH ×3 (09:09→16:46)
[2022-02-05] MEDS: PAROXETINE HCL 10MG TABLET PO SCH (09:09)
[2022-02-05] MEDS: ROPINIROLE HCL 1MG TABLET PO SCH ×2 (09:09→21:16)
[2022-02-05] MEDS: CARVEDILOL 3.125 MG TABLET PO SCH ×2 (09:09→21:20)
[2022-02-05 12:00] VITALS: BP 118/65
[2022-02-05 16:00] VITALS: BP 124/59
[2022-02-05 20:00] VITALS: BP 120/59
[2022-02-05] MEDS: ATORVASTATIN CALCIUM 40MG TABLET PO SCH (21:20)
[2022-02-05] MEDS: GABAPENTIN 300MG CAPSULE PO SCH (21:20)
[2022-02-06 04:00] VITALS: BP 116/66
[2022-02-06] MEDS: INSULIN LISPRO 100 UNITS/ML SUBCUT SCH ×4 (05:44→21:00)
[2022-02-06] MEDS: BLOOD SUGAR DIAGNOSTIC STRIP TEST SCH ×4 (05:44→21:35)
[2022-02-06] MEDS: METOCLOPRAMIDE HCL 10MG/2ML VIAL IV SCH ×5 (05:45→23:41)
[2022-02-06] MEDS: MIDODRINE HCL 5MG TABLET PO SCH ×3 (05:45→22:00)
[2022-02-06] MEDS: LACTULOSE 20G/30ML UDC PO SCH ×3 (05:46→22:08)
[2022-02-06] MEDS: SODIUM CHLORIDE 0.9% INJ 3ML FLUSH IVF SCH ×3 (05:46→22:15)
[2022-02-06] MEDS: SEVELAMER CARBONATE 800 MG TABLET PO SCH ×3 (07:40→18:08)
[2022-02-06 08:00] VITALS: BP 119/56
[2022-02-06] MEDS: CARVEDILOL 3.125 MG TABLET PO SCH ×2 (09:00→21:35)
[2022-02-06] MEDS: PAROXETINE HCL 10MG TABLET PO SCH (09:00)
[2022-02-06] MEDS: FOLIC ACID/VITAMIN B COMP W-C TABLET PO SCH (09:00)
[2022-02-06] MEDS: FERROUS SULFATE 325MG TABLET PO SCH (09:00)
[2022-02-06] MEDS: ROPINIROLE HCL 1MG TABLET PO SCH ×2 (10:24→22:08)
[2022-02-06 12:00] VITALS: BP 114/54
[2022-02-06 13:00] VITALS: BP 114/76
[2022-02-06 16:00] VITALS: BP 107/62
[2022-02-06 20:00] VITALS: BP 122/59
[2022-02-06] MEDS: GABAPENTIN 300MG CAPSULE PO SCH (21:34)
[2022-02-06] MEDS: ATORVASTATIN CALCIUM 40MG TABLET PO SCH (21:34)
[2022-02-07] VITALS (7 sets, daily range): BP systolic 95–122; BP diastolic 53–72
[2022-02-07] MEDS: SODIUM CHLORIDE 0.9% INJ 3ML FLUSH IVF SCH ×2 (05:09→13:57)
[2022-02-07] MEDS: LACTULOSE 20G/30ML UDC PO SCH ×2 (05:09→13:56)
[2022-02-07] MEDS: MIDODRINE HCL 5MG TABLET PO SCH ×2 (05:10→14:00)
[2022-02-07] MEDS: METOCLOPRAMIDE HCL 10MG/2ML VIAL IV SCH ×3 (05:10→17:16)
[2022-02-07] MEDS: INSULIN LISPRO 100 UNITS/ML SUBCUT SCH ×4 (06:21→20:29)
[2022-02-07] MEDS: BLOOD SUGAR DIAGNOSTIC STRIP TEST SCH ×4 (06:21→20:29)
[2022-02-07 06:34] LABS: BASOPHILS % 0.7 % (0.0-2.0); EOSINOPHILS % 3.4 % (0.0-5.0); HEMATOCRIT. 36.2 % (42.0-52.0); HEMOGLOBIN. 12.1 g/dL (14.0-18.0); LYMPHOCYTES % 21.4 % (20.0-50.0); MEAN CORPUSCULAR HEMOGLOBIN 30.3 pg (28.0-32.0); MEAN PLATELET VOLUME 7.5 fl (7.4-10.4); MONOCYTES % 14.6 % (2.0-8.0); NEUTROPHILS % 59.9 % (40.0-76.0); PLATELET 133 x1000/uL (130-400); RED BLOOD CELL COUNT 3.98 mill/uL (4.7-6.1); RED CELL DISTRIBUTION WIDTH 16.7 % (11.6-14.6)
[2022-02-07] MEDS: PAROXETINE HCL 10MG TABLET PO SCH (08:58)
[2022-02-07] MEDS: FOLIC ACID/VITAMIN B COMP W-C TABLET PO SCH (08:59)
[2022-02-07] MEDS: FERROUS SULFATE 325MG TABLET PO SCH (08:59)
[2022-02-07] MEDS: SEVELAMER CARBONATE 800 MG TABLET PO SCH ×3 (08:59→17:16)
[2022-02-07] MEDS: CARVEDILOL 3.125 MG TABLET PO SCH ×2 (09:00→20:29)
[2022-02-07] MEDS: ROPINIROLE HCL 1MG TABLET PO SCH (09:59)
[2022-02-07] MEDS: GABAPENTIN 300MG CAPSULE PO SCH (20:29)
[2022-02-07] MEDS: ATORVASTATIN CALCIUM 40MG TABLET PO SCH (20:29)
== END 2022-02-07 21:26 | DRG 441 ==
LOC: ER 13:23 → EDBEDREQ 17:01 → 8WST 19:34 → EDBEDREQ 19:39 → EDBEDREQTM 19:39 → ENRESERV 02-01 07:49 → 8WST 02-05 00:45
PROVIDERS: ADMIT Internal Medicine; ATTEND Internal Medicine
PROC: 5A1D70Z Performance of Urinary Filtration, Intermittent, Less than 6 Hours Per Day (ICD-10-PCS; 2022-02-02)
PROC: 0W9G3ZZ Drainage of Peritoneal Cavity, Percutaneous Approach (ICD-10-PCS; principal; 2022-02-04)
PROC: 5A1D70Z Performance of Urinary Filtration, Intermittent, Less than 6 Hours Per Day (ICD-10-PCS; 2022-02-04)
DX: K72.90 Hepatic failure, unspecified without coma (principal); G93.41 Metabolic encephalopathy; N18.6 End stage renal disease; E11.52 Type 2 diabetes mellitus with diabetic peripheral angiopathy with gangrene; I13.2 Hypertensive heart and chronic kidney disease with heart failure and with stage 5 chronic kidney disease, or end stage renal disease; I96 Gangrene, not elsewhere classified; K74.60 Unspecified cirrhosis of liver; Z20.822 Contact with and (suspected) exposure to COVID-19; E11.40 Type 2 diabetes mellitus with diabetic neuropathy, unspecified; E78.5 Hyperlipidemia, unspecified; I25.10 Atherosclerotic heart disease of native coronary artery without angina pectoris; I50.9 Heart failure, unspecified; E11.22 Type 2 diabetes mellitus with diabetic chronic kidney disease; K21.9 Gastro-esophageal reflux disease without esophagitis; D63.1 Anemia in chronic kidney disease; E11.51 Type 2 diabetes mellitus with diabetic peripheral angiopathy without gangrene; I95.9 Hypotension, unspecified; Z95.1 Presence of aortocoronary bypass graft; Z99.2 Dependence on renal dialysis; Z79.899 Other long term (current) drug therapy; Z89.029 Acquired absence of unspecified finger(s)
CPT/HCPCS: 36415; 49083; 71045; 80048; 80053; 80320; 82140; 82962; 83970; 84100; 84484; 85025; 86705; 86709; 86803; 87340; 87426; 93005; 99285; C1893; J1200; J2765; J3490; G0480